=== PATIENT | male | born 1960 | race Caucasian/White ===

== ENCOUNTER 2016-11-24 09:12 | Emergency (ER) | payer MEDICAID ==
[2016-11-24 09:19] VITALS: BP 130/78
--- NOTE | 2016-11-24 09:38 | UC ---
Timbo Yo Claudia, scribed for Neo Chandler MD on 11/24/16 at 0934 . UC General HPI - HPI Summary HPI Summary: 56 year old male presents to the [facility] with Multi-Sx. Pt states sore throat, congestion, GONZALES, nasal discharge, fever, chills. Pt states gradual onset of Sx Thursday worsening Thursday and Thursday.He notes constant Sx since onset. Pt denies being exposed to friends/family with sore throat. Pt denies any alleviating or aggravating factors. He denies any associated Sx of abd pain, SOB , CP. Pt reports taking NyQuil and DayQuil with limited relief. - History of Current Complaint Chief Complaint: UCRespiratory Stated Complaint: THROAT PAIN Time Seen by Provider: 11/24/16 09:27 Hx Obtained From: Patient Onset/Duration: Gradual Onset, Lasting Days Timing: Constant Associated Signs & Symptoms: Positive: Fever, Headache. Negative: Abdominal Pain, Chest Pain, SOB - Allergy/Home Medications Allergies/Adverse Reactions: Allergies Allergy/AdvReac Type Severity Reaction Status Date / Time No Known Allergies Allergy Verified 11/22/12 16:31 Home Medications: Home Medications Naproxen Sodium [Naproxen Sodium 220 mg] 220 mg PO 11/24/16 [History] [id number] [Nyquil Severe Cold/Flu 5-6.25-10-325 mg/15Ml] 1 liq PO 11/24/16 [History] PMH/Surg Hx/FS Hx/Imm Hx Previously Healthy: Yes - Surgical History Surgical History: None - Family History Known Family History: Positive: Hypertension, Diabetes - Social History Occupation: Employed Full-time Alcohol Use: Occasionally Substance Use Type: None Smoking Status (MU): Former Smoker - Immunization History Most Recent Tetanus Shot: <5 YEARS Review of Systems Constitutional: Fever, Chills Skin: Negative Eyes: Negative ENT: Sore Throat, Nasal Discharge, Sinus Congestion Respiratory: Negative - NO SOB Cardiovascular: Negative - NO CP Gastrointestinal: Negative - NO ABD PAIN Genitourinary: Negative Motor: Negative Neurovascular: Negative Musculoskeletal: Negative Neurological: Headache Psychological: Negative All Other Systems Reviewed And Are Negative: Yes Physical Exam Triage Information Reviewed: Yes Appearance: Well-Appearing, No Pain Distress, Well-Nourished Vital Signs: Initial Vital Signs Temp 97.0 F 11/24/16 09:15 Pulse 95 11/24/16 09:15 Resp 18 11/24/16 09:15 BP 130/78 11/24/16 09:15 Pulse Ox 98 11/24/16 09:15 Vital Signs Reviewed: Yes Eyes: Positive: Conjunctiva Clear ENT: Positive: Normal ENT inspection, Hearing grossly normal, Pharyngeal erythema, Tonsillar exudate. Negative: Nasal congestion, Nasal drainage Neck: Positive: Supple, Nontender, No Lymphadenopathy Respiratory: Positive: Chest non-tender, Lungs clear, Normal breath sounds, No respiratory distress Cardiovascular: Positive: RRR, No Murmur, Pulses Normal Abdominal Exam: Normal Skin Exam: Normal Course/Dx - Differential Dx - Multi-Symptom Provider Diagnoses: PHARYNGITIS Discharge - Discharge Plan Condition: Stable Disposition: HOME Prescriptions: Amoxicillin (*) [Amoxicillin 875 MG (*)] 875 mg PO BID #20 tab Patient Education Materials: Pharyngitis (ED) Referrals: Cam Spencer MD [Primary Care Provider] - If Needed The documentation as recorded by the Timbo donaldson Claudia accurately reflects the service I personally performed and the decisions made by Geraldine jernigan Hossein, MD.
== END 2016-11-24 09:38 | disposition home or self-care (01) ==
LOC: UCEAST 09:12
DX: J02.9 Acute pharyngitis, unspecified (principal); Z87.891 Personal history of nicotine dependence
CPT/HCPCS: 99202; G0463

== ENCOUNTER 2016-12-30 12:12 | Emergency (ER) | payer OTHER ==
[2016-12-30 12:18] VITALS: BP 140/74
--- NOTE | 2016-12-30 12:39 | UC ---
Throat Pain/Nasal Perry HPI - HPI Summary HPI Summary: 56 male presents to the urgent care c/o sore throat since 12/26/2016. Pt reports he has a burning sensation down his throat w/ a mild cough. Pt has not taking anything to alleviate symptoms. Pt denies fever, SOB, chest pain, GONZALES, N/V /D. Pt has not other complains. - History of Current Complaint Chief Complaint: UCGeneralIllness Stated Complaint: SORE THROAT Time Seen by Provider: 12/30/16 12:24 Hx Obtained From: Patient Onset/Duration: Gradual Onset, Lasting Days, Still Present Severity: Mild Pain Intensity: 4 Pain Scale Used: 0-10 Numeric Cough: Nonproductive Associated Signs & Symptoms: Positive: Dysphagia. Negative: Fever, Vomiting, Rash - Epiglottits Risk Factors Epiglottis Risk Factors: Negative - Allergies/Home Medications Allergies/Adverse Reactions: Allergies Allergy/AdvReac Type Severity Reaction Status Date / Time No Known Allergies Allergy Verified 12/30/16 12:18 Home Medications: Home Medications Acetaminophen [Tylenol] 2 tab PO Q4HR PRN 12/30/16 [History Confirmed 12/30/16] [id number] W/ APAP [Tylenol Cold & Flu Severe 3-72-283-325 mg] 2 tab PO BEDTIME PRN 12/30/16 [History Confirmed 12/30/16] PMH/Surg Hx/FS Hx/Imm Hx Previously Healthy: Yes - Surgical History Surgical History: None - Family History Known Family History: Positive: Hypertension, Diabetes - Social History Occupation: Employed Full-time Lives: With Family Alcohol Use: Weekly Substance Use Type: None Smoking Status (MU): Former Smoker Household Exposure Type: Cigarettes - Immunization History Most Recent Tetanus Shot: <5 YEARS Review of Systems Constitutional: Negative Skin: Negative Eyes: Negative ENT: Sore Throat Respiratory: Cough - non productive Cardiovascular: Negative Gastrointestinal: Negative Genitourinary: Negative Motor: Negative Neurovascular: Negative Musculoskeletal: Negative Neurological: Negative Psychological: Negative All Other Systems Reviewed And Are Negative: Yes Physical Exam Triage Information Reviewed: Yes Appearance: Well-Appearing, No Pain Distress, Well-Nourished Vital Signs: Initial Vital Signs Temp 97.1 F 12/30/16 12:13 Pulse 70 12/30/16 12:13 Resp 16 12/30/16 12:13 BP 140/74 12/30/16 12:13 Pulse Ox 96 12/30/16 12:13 Vital Signs Reviewed: Yes Eye Exam: Normal Eyes: Positive: Conjunctiva Clear - PERRLA, EOMI, fundi grossly normal ENT Exam: Normal ENT: Positive: Normal ENT inspection, Hearing grossly normal, Pharyngeal erythema - no exudate, TMs normal, Tonsillar swelling Dental Exam: Normal Neck exam: Normal Neck: Positive: Supple, Nontender, No Lymphadenopathy Respiratory Exam: Normal Respiratory: Positive: Chest non-tender, Lungs clear, Normal breath sounds Cardiovascular Exam: Normal Cardiovascular: Positive: RRR, No Murmur, Pulses Normal Abdominal Exam: Normal Abdomen Description: Positive: Nontender, No Organomegaly, Soft. Negative: CVA Tenderness (R) Bowel Sounds: Positive: Present Musculoskeletal Exam: Normal Neurological Exam: Normal Psychological Exam: Normal Skin Exam: Normal Throat Pain/Nasal Course/Dx - Course Course Of Treatment: 56 male presents to the urgent care c/o sore throat since . Pt reports he has a burning sensation down his throat w/ a persistent cough. Pt has not taking anything to alleviate symptoms. Pt denies fever, SOB, chest pain, GONZALES, N/V/D. HX obtained. PE abnormal findings:ENT: Positive: Normal ENT inspection, Hearing grossly normal, Pharyngeal erythema - no exudate, TMs normal, Tonsillar swelling. Rapid strep Ordered: results: negative. Viral pharyngitis. PT Advised to take Tylenol q4-6hrs prn to alleviate symptoms of pain and swelling. Increase fluid intake. Rx Omeprazole PO to alleviate symptoms of burning esophagus. Advised on dietary modifications. BP: elevated today w/o Hx of HTN. Advised on low salt in diet and f/u with his PCP for further management. Pt undersood and agreed. - Differential Dx/Diagnosis Differential Diagnosis/HQI/PQRI: Laryngitis, Mononucleosis, Otitis Media, Peritonsillar Abscess, Pharyngitis, Tonsillitis Provider Diagnoses: 1- Viral pharyngitis. 2-GERD. 3- Elevated blood pressure w /o HX of HTN Discharge - Discharge Plan Condition: Stable Disposition: HOME Prescriptions: Omeprazole CAP* [Prilosec CAP* 20 MG] 20 mg PO DAILY #30 cap. Patient Education Materials: Pharyngitis (ED), Gastroesophageal Reflux Disease (ED), Low Sodium Diet (ED) Referrals: Kaiser Fermin MD [Primary Care Provider] - 1 Week Additional Instructions: 1-Please take medications as instructed to alleviate symptoms. Please do dietary modifications as directed. 2-For your Viral pharyngitis take Tylenol OTC q4-6hrs for the following 2-3 days to alleviate symptoms of pain and swelling. 3-Your BP is elevated today please decrease salt in your diet and monitor your BP. F/u with your PCP for further evaluation and treatment.
== END 2016-12-30 13:09 | disposition home or self-care (01) ==
LOC: UCEAST 12:12
DX: J02.8 Acute pharyngitis due to other specified organisms (principal); K21.9 Gastro-esophageal reflux disease without esophagitis; R03.0 Elevated blood-pressure reading, without diagnosis of hypertension; Z87.891 Personal history of nicotine dependence
CPT/HCPCS: 87651; 99212; G0463

== ENCOUNTER 2017-01-20 14:40 | Emergency (ER) | payer OTHER ==
--- NOTE | 2017-01-20 16:21 | RAD ---
HISTORY: Cough COMPARISONS: None VIEWS: 4: Frontal dual-energy and lateral views of the chest. FINDINGS: CARDIOMEDIASTINAL SILHOUETTE: The cardiomediastinal silhouette is normal. DB: The db are normal. PLEURA: The costophrenic angles are sharp. No pleural abnormalities are noted. LUNG PARENCHYMA: The lungs are clear. ABDOMEN: The upper abdomen is clear. There is no subphrenic gas. BONES AND SOFT TISSUES: No bone or soft tissue abnormalities are noted. OTHER: None. IMPRESSION: NO ACTIVE CARDIOPULMONARY DISEASE.
--- NOTE | 2017-01-20 16:22 | UC ---
Respiratory Complaint HPI - HPI Summary HPI Summary: Patient presents to the with CC of cough x 3 weeks which has been worsening. He was seen here 2 weeks ago and dx with GERD. He notes to coughing up brown sputum, cough is 10/10 and worse at night and feeling sweats and chills s/p coughing fit. Temps are around 99.0 and he denies any SOB or difficulty breathing otherwise. Patient is a non-smoker. Denies N/V/C/D. Denies previous PNA history, but endorses previous bronchitis. Otherwise healthy and takes no medications. Denies allergies. - History of Current Complaint Chief Complaint: UCRespiratory Stated Complaint: CONGESTION COUGH Time Seen by Provider: 01/20/17 16:02 Hx Obtained From: Patient Onset/Duration: Gradual Onset Timing: Constant Severity Initially: Moderate Severity Currently: Moderate Pain Intensity: 5 Pain Scale Used: 0-10 Numeric Character: Cough: Productive Aggravating Factors: Deep Breaths Alleviating Factors: Nothing Associated Signs And Symptoms: Positive: Dyspnea, URI - Risk Factors Pulmonary Embolism Risk Factors: Negative Cardiac Risk Factors: Negative Pseudomonas Risk Factors: Negative Tuberculosis Risk Factors: Negative - Allergies/Home Medications Allergies/Adverse Reactions: Allergies Allergy/AdvReac Type Severity Reaction Status Date / Time No Known Allergies Allergy Verified 01/20/17 15:21 Home Medications: Home Medications Loratadine [Claritin 10 MG CAP] 10 mg PO DAILY 01/20/17 [History Confirmed 01/20] PMH/Surg Hx/FS Hx/Imm Hx Previously Healthy: Yes Respiratory History: Bronchitis - Surgical History Surgical History: None - Family History Known Family History: Positive: Hypertension, Diabetes - Social History Occupation: Employed Full-time Lives: With Family Alcohol Use: Occasionally Substance Use Type: None Smoking Status (MU): Former Smoker Household Exposure Type: Cigarettes - Immunization History Most Recent Tetanus Shot: <5 YEARS Review of Systems Constitutional: Negative Skin: Negative ENT: Negative Respiratory: Shortness Of Breath, Cough Cardiovascular: Negative Motor: Negative Neurovascular: Negative Musculoskeletal: Negative Neurological: Negative All Other Systems Reviewed And Are Negative: Yes Physical Exam Triage Information Reviewed: Yes Appearance: Well-Appearing, No Pain Distress, Well-Nourished Vital Signs: Initial Vital Signs Temp 97.5 F 01/20/17 15:16 Pulse 84 01/20/17 15:16 Resp 16 01/20/17 15:16 BP 146/92 08/22/17 15:16 Pulse Ox 97 01/20/17 15:16 Vital Signs Reviewed: Yes Eye Exam: Normal Eyes: Positive: Conjunctiva Clear Neck exam: Normal Neck: Positive: Supple, Nontender, No Lymphadenopathy Respiratory: Positive: Rhonchi Cardiovascular Exam: Normal Cardiovascular: Positive: RRR Musculoskeletal Exam: Normal Musculoskeletal: Positive: Strength Intact Neurological Exam: Normal Neurological: Positive: Alert Psychological: Positive: Normal Response To Family, Age Appropriate Behavior Skin Exam: Normal UC Diagnostic Evaluation - Laboratory O2 Sat by Pulse Oximetry: 97 Respiratory Course/Dx - Course Course Of Treatment: Patient is sent to xray. Xray showed no findings. However , on physical exam lungs were rhonchorous, worse in the LLL. Patient is coughing and is having difficulty catching his breath in the UC. Patient is prescribed cough medication for day and night time and is advised to take the robitussin with codeine in the day time and discontonue the tesslon only if his cough is not improved with the tesslon. Albuterol inhaler given and z-gerald for possible bronchitis d/t brown sputum. Patient is a non-smoker, so will cover for S. PNA and not H. Flu. He is advised to return for any worsening symptoms. Medications were explained and precautions given. - Differential Dx/Diagnosis Differential Diagnosis/HQI/PQRI: Asthma, Bronchitis, Lower Resp Infection Provider Diagnoses: Bronchitis Discharge - Discharge Plan Condition: Stable Disposition: HOME Prescriptions: Albuterol HFA INHALER* [Ventolin HFA Inhaler*] 1 puff INH Q6H PRN #1 mdi PRN Reason: Shortness Of Breath Azithromyxin GERALD (NF) [Z-Gerald (Zithromax) 250 mg tabs #6] 2 tab PO .TODAY, THEN 1 DAILY #6 tab Benzonatate CAP* [Tessalon CAP*] 100 mg PO TID #21 cap guaiFENesin/CODIEN 100MG-10MG* [Robitussin AC 100Mg-10Mg*] 10 ml PO BEDTIME # 120 udc MDD 30 Patient Education Materials: Codeine (By mouth), Acute Cough (ED) Referrals: Kaiser Fermin MD [Primary Care Provider] - Additional Instructions: Take the tesslon perles during the day You may take robitussin with codeine 10mg (2 teaspoons) at bedtime This medication you may also take during the daytime, if cough is not resolved well with tesslon, but do not take both together. Albuterol inhaler for any shortness of breath Azithromycin as prescribed.
[2017-01-20 17:00] VITALS: BP 124/64
== END 2017-01-20 16:55 | disposition home or self-care (01) ==
LOC: UCEAST 14:40
DX: J40 Bronchitis, not specified as acute or chronic (principal); Z87.891 Personal history of nicotine dependence
CPT/HCPCS: 71020; 99212; G0463

== ENCOUNTER 2017-01-28 17:12 | Emergency (ER) | payer OTHER ==
[2017-01-28 17:24] VITALS: BP 145/97
--- NOTE | 2017-01-28 17:42 | ED ---
Respiratory - HPI Summary HPI Summary: 56M presents with cough for 3 weeks. He states his cough has gotten better and then worst. He was told her had GERD first time seen here and placed on omeprazole which didn't seem to help. He then was seen again and placed on zpack, inhaler, tessalon, and cough medication. He was feeling better after completing all this and then his symptoms returned this weekend. He was a smoker and quit 5 years ago and was smoking a pack a week. He admits to fever. He admits to post nasal drip and sinus congestion. He denies any ear pain, chest pain. He is SOB when he coughs. He denies any history of respiratory issues. He is leaving for camping this weekend. - History of Current Complaint Chief Complaint: UCRespiratory Stated Complaint: URI Time Seen by Provider: 01/28/17 17:27 - Allergy/Home Medications Allergies/Adverse Reactions: Allergies Allergy/AdvReac Type Severity Reaction Status Date / Time No Known Allergies Allergy Verified 01/28/17 17:20 PMH/Surg Hx/FS Hx/Imm Hx Endocrine/Hematology History: Denies: Hx Diabetes, Hx Thyroid Disease Cardiovascular History: Denies: Hx Hypertension Respiratory History: Denies: Hx Asthma, Hx Chronic Obstructive Pulmonary Disease (COPD) GI History: Denies: Hx Ulcer Psychiatric History: Denies: Hx Eating Disorder Infectious Disease History: No Infectious Disease History: Denies: Hx Hepatitis, Hx Human Immunodeficiency Virus (HIV), Traveled Outside the [place] in Last 30 Days - Family History Known Family History: Positive: Hypertension, Diabetes Negative: Respiratory Disease - Social History Alcohol Use: Occasionally Substance Use Type: Reports: None Smoking Status (MU): Former Smoker Review of Systems Positive: Fever Positive: Sore Throat, Nasal Discharge Negative: Chest Pain Positive: Shortness Of Breath, Cough Negative: Abdominal Pain All Other Systems Reviewed And Are Negative: Yes Physical Exam Triage Information Reviewed: Yes Vital Signs On Initial Exam: Initial Vitals Temp Pulse Resp BP Pulse Ox 98.1 F 84 18 145/97 98 01/28/17 17:14 01/28/17 17:14 01/28/17 17:14 01/28/17 17:14 01/28/17 17:14 Vital Signs Reviewed: Yes Appearance: Positive: Well-Appearing Skin: Positive: Warm, Dry Head/Face: Positive: Normal Head/Face Inspection Eyes: Positive: Normal, EOMI, NEVAEH, Conjunctiva Clear ENT: Positive: Pharyngeal erythema - post nasal drip present, Nasal congestion, TMs normal Neck: Positive: Supple, Nontender, No Lymphadenopathy Respiratory/Lung Sounds: Positive: Breath Sounds Present, Rhonchi - upper resp sounds present throughtout lungs Cardiovascular: Positive: Normal, RRR Abdomen Description: Positive: Nontender, Soft Bowel Sounds: Positive: Present Musculoskeletal: Positive: Normal Neurological: Positive: Normal Psychiatric: Positive: Normal Diagnostics - Vital Signs Vital Signs Temp Pulse Resp BP Pulse Ox 01/28/17 17:14 98.1 F 84 18 145/97 98 - Laboratory Lab Statement: Any lab studies that have been ordered have been reviewed, and results considered in the medical decision making process. - Radiology chest Xray Interpretation: No Acute Changes Radiology Interpretation Completed By: Radiologist Disposition - Course Course Of Treatment: 56M presents with cough for 3 weeks. He states his cough has gotten better and then worst. He was told her had GERD first time seen here and placed on omeprazole which didn't seem to help. He then was seen again and placed on zpack, inhaler, tessalon, and cough medication. He was feeling better after completing all this and then his symptoms returned this weekend. He was a smoker and quit 5 years ago and was smoking a pack a week. He admits to fever. He admits to post nasal drip and sinus congestion. He denies any ear pain, chest pain. He is SOB when he coughs. He denies any history of respiratory issues. on exam has post nasal drip present, congestion heard in lungs. xray normal. will treat with steriod, flonase, and levaquin. told to follow up with PCP about blood pressure and potential needs respiratory testing for COPD? cough could be just persistent bronchitis or due to post nasal drip. patient understands and agrees with plan. - Differential Dx - Cardiopulmonary Differential Diagnoses - Cardiopulmonary: Acute Dyspnea, Bronchitis, Lower Resp Infection - Diagnoses Provider Diagnoses: Bronchitis Discharge - Discharge Plan Condition: Good Disposition: HOME Prescriptions: Benzonatate CAP* [Tessalon 100 MG CAP*] 100 mg PO TID PRN #21 cap PRN Reason: Cough Fluticasone NASAL SPRAY 50MCG* [Flonase NASAL SPRAY 50MCG*] 2 spray BOTH NARES DAILY #1 btl Levofloxacin TAB* [Levaquin 500 Tab*] 500 mg PO DAILY #7 tab guaiFENesin/CODIEN 100MG-10MG* [Robitussin AC 100Mg-10Mg*] 5 ml PO Q6H PRN #100 ml MDD 20ml PRN Reason: Cough predniSONE TAB* [Deltasone TAB*] 40 mg PO DAILY #10 tab Patient Education Materials: Acute Bronchitis (ED) Referrals: Kaiser Fermin MD [Primary Care Provider] - Additional Instructions: Use inhaler up to two puffs every 4-6 hours for cough and wheezing Take steroid once a day for 5 days Take antibiotic once daily starting tomorrow for 7 days Take three tablets a day of tessalon Use robitussin 5ml every 6 hours at night for cough Take Tylenol or ibuprofen for pain every 6 hours Follow up with primary within 5 days about blood pressure which is high at this time so decrease salt intake in meantime Return to ED if develop severe shortness of breath or any new or worsening symptoms
--- NOTE | 2017-01-28 17:59 | RAD ---
Indication: Cough, fever. 2 views of the chest including dual energy PA views demonstrate no mediastinal shift. Heart is of normal size and configuration. Lung espinoza are clear. IMPRESSION: No active cardiopulmonary disease is noted.
== END 2017-01-28 18:08 | disposition home or self-care (01) ==
LOC: UCEAST 17:12
DX: J40 Bronchitis, not specified as acute or chronic (principal); Z87.891 Personal history of nicotine dependence
CPT/HCPCS: 71020; 99212; G0463

== ENCOUNTER → 2018-06-30 05:34 | Day surgery (SDC) | payer OTHER ==
--- NOTE | 2018-06-22 13:37 | HP ---
PREOPERATIVE HISTORY AND PHYSICAL: DATE OF ADMISSION/SURGERY: 06/30/18 DATE OF OFFICE VISIT: 06/22/18 ATTENDING SURGEON: Dr. Aramis Price.* (DICTATED BY PRIYANK MUÑOZ) PROCEDURE: Right shoulder arthroscopic rotator cuff repair, decompression, debridement, subpectoral biceps tenodesis. CHIEF COMPLAINT: Right shoulder. HISTORY OF PRESENT ILLNESS: Jun is a 57-year-old male, who presents to the clinic for right shoulder pain after an injury on 03/30/18 that caused a rotator cuff tear and biceps tendinitis. He has failed conservative measures and therefore agreed to undergo a right shoulder arthroscopic rotator cuff repair, decompression, debridement, subpectoral biceps tenodesis with Dr. Price on 06/30/18. PAST MEDICAL HISTORY: High cholesterol. PAST SURGICAL HISTORY: No prior surgeries. MEDICATIONS: 1. Diclofenac sodium 75 mg 1 by mouth twice a day. 2. Pravastatin 20 mg 1 by mouth at bedtime. 3. Truvada 200/300 mg 1 tablet every day for 3 months. 4. Sildenafil citrate 20 mg 1 by mouth 30 minutes before sexual activity. 5. Advil 200 mg as needed. 6. Vitamin D 1000 units 2 by mouth every day. 7. Vitamin C 500 mg 1 by mouth every day. 8. Ibuprofen 400 to 600 mg every 6 hours as needed for pain. ALLERGIES: No known drug allergies. FAMILY HISTORY: Positive for diabetes in mother and sister, heart disease in mother, history of DVT in mother, grandfather with stroke, cancer in grandfather , and rheumatoid arthritis in his mother. SOCIAL HISTORY: He lives with his family. 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 He quit tobacco 6 years ago. He drinks 2 alcoholic beverages a week. He exercises regularly. He is right hand dominant. REVIEW OF SYSTEMS: A 14-point review of systems was reviewed with the patient. Positive for current complaint, otherwise negative. Denies fever, chills, chest pain, shortness of breath, history of bleeding disorder, history of DVT or PE, history of hepatitis C or HIV. PHYSICAL EXAMINATION GENERAL: A 57-year-old, well-developed, well-nourished male, in no acute distress. VITAL SIGNS: Height 67, weight 175, pulse 74, blood pressure 138/94, temperature 96.2, BMI 27.4. HEENT: Normocephalic, atraumatic. PERRLA. Throat clear. NECK: Supple. PULMONARY: Lungs are clear to auscultation bilaterally. No wheezing, rhonchi, or rales. CARDIO: Regular rate and rhythm. S1, S2. No murmurs, gallops, or rubs. No edema. ABDOMEN: Positive bowel sounds. Soft, nontender. NEURO: Alert and oriented x3. Cranial nerves grossly intact. MUSCULOSKELETAL: Right upper extremity: Skin is intact. No warmth or erythema. Forward flexion to 160 passively, actively to 130, abduction 110, external rotation to 60, internal rotation to T8. +4/5 strength to rotator cuff testing with pain. +2 radial pulse. Sensation intact to light touch distally. Positive impingement, Speed, Robertson-Shoaib, [place]. DIAGNOSTIC STUDIES: MRI revealed full-thickness tear of the rotator cuff and AC joint arthritis as well as biceps tendinopathy and a possible SLAP tear. IMPRESSION: Right shoulder rotator cuff tear and biceps tendinitis. PLAN: The patient is scheduled to undergo a right shoulder arthroscopic rotator cuff repair, decompression, debridement, and subpectoral biceps tenodesis with Dr. Price on 06/30/18. He will follow up 10 to 14 days postop for followup and suture removal. Percocet will be used for postop pain management and Keflex for antibiotic prophylaxis due to the biceps tenodesis. PRIYANK MUÑOZ [id number]/[facility] #: [id number] [facility] MEDICAL CENTERKelsey
[~2018-06-30 05:34] MED LIST: Acetaminophen TAB* 325 MG PO PRN; Buffered Lidocaine 1% SYRIN* 1 ML/SYRINGE INTRADERM ONE; Dexamethasone IV* 4 MG/ML 1 ML (4 MG) IV SLOW PU ONE; Dexamethasone IV* 4 MG/ML 1 ML (4 MG) ONE; DiMENhydriNATE IV* 50 MG/ML VIAL IV PUSH PRN; EPHEDrine (Pressors)* 50 MG/ML VIAL ONE; Famotidine IV* 10 MG/ML 2 ML (20 mg) IV ONE; Famotidine IV* 10 MG/ML 2 ML (20 mg) ONE; Ketorolac INJ* 30 MG/ML 1 ML VIAL IV PRN; Lactated Ringers 1000 ML Bag* 1,000 ML IV SCH; Lidocaine 1% INJ* 10 MG/ML 30 ML SDV ONE; Lidocaine 1%* 5 ML VIAL ONE; Midazolam* 1 MG/ML 5 ML VIAL (5 MG) ONE; Naloxone* 0.4 MG/ML 1 ML VIAL IV PRN; Ondansetron INJ* 2 MG/ML VIAL ONE; PROCHLORPERAZINE INJ 5 MG/ML 2 ML VIAL IV PRN; Phenylephrine IV* 40 MCG/ML 10 ML SYRINGE ONE; Propofol* 10 MG/ML 20 ML BTL ONE; ROPIVACAINE 5 MG/ML 30 ML BTL (0.5%) ONE; Rocuronium* 10 MG/ML VIAL ONE; Ropivacaine* 2 MG/ML 20 ML VIAL (0.2%) ONE; Succinylcholine* 20 MG/ML 10 ML VIAL ONE; ceFAZolin 2 GM PREMIX in ORs 2 GM/50 ML BAG IVPB ONE; fentaNYL* 50 MCG/ML 2 ML VIAL (100 MCG VIAL) IV PRN; fentaNYL* 50 MCG/ML 2 ML VIAL (100 MCG VIAL) ONE; oxyCODONE/Acetamin 5/325 MG* TAB PO PRN
[2018-06-30 11:59] VITALS: BP 145/77
--- NOTE | 2018-06-30 14:01 | OP ---
OPERATIVE REPORT: DATE OF OPERATION: 06/30/18 DATE OF : 56 SURGEON: Aramis Price MD ADDICTIONS RECOVERY SPECIALIST: PRIYANK Mauro An railways assistant was needed for the entirety of the case to help with positioning, retraction, and was ut ilized throughout all portions of the case. ANESTHESIOLOGIST: Dr. Hayes. ANESTHESIA: General interscalene block. PRE-OP DIAGNOSIS: Right shoulder full-thickness tear of the rotator cuff with SLAP tear. POST-OP DIAGNOSIS: Right shoulder full-thickness tear of the rotator cuff with SLAP tear. OPERATIVE PROCEDURE: Right shoulder arthroscopy with: 1. Extensive glenohumeral debridement including debridement of the anteroposterior superior labrum. 2. Arthroscopic biceps tenodesis. 3. Subacromial decompression with acromioplasty. 4. Rotator cuff repair of the supraspinatus tendon in a double row fashion. COMPLICATIONS: None. ESTIMATED BLOOD LOSS: Minimal. IMPLANTS USED: Three Healicoil and two Multifix. INDICATIONS: Jun Talbot is a 57-year-old gentleman, who presented with a persistent pain in th e shoulder diagnosed with rotator cuff tear. He has failed conservative management. He has elected to proceed with surgical treatment. Risks and benefits of surgery were discussed at length and inclu ded but not limited to bleeding; infection; damage to nerves, vessels, surrounding structures; wound nonhealing; persistent pain; need for further surgery; scaring; stiffness; incomplete relief of sympt oms; and risks of anesthesia. DESCRIPTION OF PROCEDURE: The patient was greeted in the preoperative area by the attending surgeon. Correct extremity was marked. Consent was confirmed. The patient underwent interscalene nerve blo ck by the anesthesiologist after which he was brought back to the operating suite. He was placed in the supine position on the operating room table. He then underwent general anesthesia and endotrache al intubation. After which, he was placed in the lateral decubitus position. All bony prominences w ere padded. He was secured with a peg board. The right arm was draped unsterile with 10 pounds of t raction. The right shoulder was then prepped and draped in the usual sterile fashion beginning with chlorhexidine soap, scrub, and alcohol wipe and a final prep with ChloraPrep. After appropriate surgical pause indicating site, side, procedure, administration of antibiotics, the standard posterolateral portal was made sharply with an 11 blade. Scope was introduced into the bernadette nt. The joint was examined. Glenohumeral joint had grade 0 to 1 changes. The anteroposterior super ior labrum had unstable fraying. Anterior wall was made in an outside-in fashion. Shaver was used t o debride this back. Inferior recess was intact with synovitis. Subscap was intact. There was full- thickness tear of the supraspinatus with unstable flaps and then anteriorly base tear. There was sup erior labrum tear as well. Once the debridement was complete, attention was directed to the rotator cuff. Plan was to try and do an arthroscopic biceps tenodesis. The scope was positioned in the subacromial space. The lateral portal was made in an outside-in fas ion. Shaver was used to debride back the bursa. The undersurface of the acromion was skeletonized u sing electrocautery device. The anterolateral spur was present and this was debrided back using a 4- 0 oval sriram. After this was completed, attention was directed to the rotator cuff. The cuff was found to have an acute traumatic tear with remnants still attached to the tuberosity. T his was debrided back using the shaver. The electrocautery device was used to skeletonize the greate r tuberosity. A 4-0 oval sriram and rasp were used to gently decorticate the tissues. He had good sarah lity of bone. Biceps was found to be in its groove. Decision was made to do a biceps tenodesis as i t was exposed quite well because of the nature of the rotator cuff tear. Through a separate stab inc ision, a 4.75 Healicoil was then placed with excellent purchase. The sutures were then passed through the tendon in a lock loop type of fashion and then tied down. The biceps was then tenotomized proxi mal to that and the stump was debrided back. Attention was then directed to the rotator cuff. The cuff tissue was carefully mobilized. This was the beginning of a medium-sized L-shaped tear. Th e shaver was used to debride back the cuff and the cuff was carefully mobilized. Once these were was appropriately found to be restored through footprint, the two separate stab incisions two 4.75 Heali coils were placed in the medial row. One of the sutures from the biceps Healicoil was also used to t ry to pass to the most anterior aspect of the tendon to help restore the cable and then the remaining sutures were passed in a horizontal mattress configuration. Arthroscopic knot tieing was then done t o tie the knots down. This reapproximated the cuff and then the sutures were split. One strap from each knot was then passed through an anterolateral Multifix anchor for double row fixation and the re maining sutures were passed posterolaterally for double row fixation. Final images were obtained. T he wounds were copiously irrigated with sterile saline. Sterile dressings were applied as well as a Cryo/Cuff and UltraSling. He was awoken from anesthesia and transferred to the PACU in stable condit ion. POSTOPERATIVE PLAN: He will be nonweightbearing. He will be in the sling for 6 weeks. Discharged w ith pain medication. DVT prophylaxis was considered but deferred due to no previous personal or fami ly history. I will see the patient back in 10 to 14 days. [id number]/[facility] #: [id number]
== END | disposition home or self-care (01) ==
LOC: OR 05:34
PROVIDERS: ATTEND Orthopaedic Surgery
DX: S46.011A Strain of muscle(s) and tendon(s) of the rotator cuff of right shoulder, initial encounter (principal); S43.491A Other sprain of right shoulder joint, initial encounter; X58.XXXA Exposure to other specified factors, initial encounter; Y92.9 Unspecified place or not applicable; G89.18 Other acute postprocedural pain; E78.5 Hyperlipidemia, unspecified; Z87.891 Personal history of nicotine dependence
CPT/HCPCS: C1713; J0330; J0690; J1100; J2250; J2405; J2704; J2795; J3010

== ENCOUNTER 2024-01-08 19:05 | Inpatient (IN) ==
[2024-01-08 19:41] LABS: ABS Basophils 0.1 10^3/uL (0.0-0.1); ABS Eosinophils 0.2 10^3/uL (0.0-0.5); ABS Lymphocytes 2.3 10^3/uL (1.0-4.8); ABS Monocytes 0.9 10^3/uL (0.0-1.1); ABS Neutrophils 5.1 10^3/uL (1.5-7.6); ABS Nucleated RBC 0.01 10^3/ul; Eosinophil % 1.8 %; Hematocrit 41.7 % (38-53); Hemoglobin 14.2 g/dL (13.2-16.3); Lymphocyte % 27.2 %; Mean Corpuscular Hemoglobin 30.5 pg (27-33); Mean Corpuscular Volume 89.5 fL (80-97); Mean Platelet Volume 7.1 fL (7.5-11.2); Nucleated Red Blood Cells % 0.1 %/100WBC (0.0-0.8); Platelet Count 397 10^3/uL (150-450); Red Blood Count 4.65 10^6/uL (4.06-5.63); Red Cell Distribution Width 13.5 % (12-17); White Blood Count 8.6 10^3/uL (3.6-10.2)
[2024-01-08 20:01] LABS: INR 1.08 (0.83-1.13)
[2024-01-08 20:23] LABS: Albumin 4.4 g/dL (3.2-5.2); Albumin/Globulin Ratio 1.5 (1-3); Calcium 9.6 mg/dL (8.6-10.3); Creatinine, Serum 1.13 mg/dL (0.67-1.17); Globulin 2.9 g/dL (2-4); Potassium 4.4 mmol/L (3.5-5.0); Total Bilirubin 0.5 mg/dL (0.2-1.0); Total Protein 7.3 g/dL (6.4-8.9); eGFR CKD-EPI 72.1 (>60)
[2024-01-08 21:07] LABS: High Sensitivity Troponin 1 Hr 3 pg/mL (<20)
[2024-01-09 06:46] LABS: ABS Basophils 0.1 10^3/uL (0.0-0.1); ABS Eosinophils 0.2 10^3/uL (0.0-0.5); ABS Lymphocytes 1.8 10^3/uL (1.0-4.8); ABS Monocytes 0.8 10^3/uL (0.0-1.1); ABS Neutrophils 4.4 10^3/uL (1.5-7.6); Eosinophil % 2.8 %; Hemoglobin 13.3 g/dL (13.2-16.3); Lymphocyte % 25.1 %; Mean Corpuscular Hemoglobin 30.6 pg (27-33); Mean Corpuscular Hgb Conc 34.2 g/dL (31-36); Mean Corpuscular Volume 89.6 fL (80-97); Mean Platelet Volume 6.9 fL (7.5-11.2); Platelet Count 355 10^3/uL (150-450); Red Blood Count 4.36 10^6/uL (4.06-5.63); Red Cell Distribution Width 13.6 % (12-17); White Blood Count 7.2 10^3/uL (3.6-10.2)
[2024-01-09 07:11] LABS: Calcium 9.3 mg/dL (8.6-10.3); Creatinine, Serum 0.95 mg/dL (0.67-1.17); Potassium 4.3 mmol/L (3.5-5.0); eGFR CKD-EPI 88.8 (>60)
[2024-01-09 11:03] LABS: C Reactive Protein 13.07 mg/L (<8.01); HDL Cholesterol 35.7 mg/dL
[2024-01-09 11:19] LABS: TSH Ultra Thyroid Stim Horm 1.9 mcIU/mL (0.34-5.60)
[2024-01-10 06:07] LABS: Calcium 9.2 mg/dL (8.6-10.3); Creatinine, Serum 1.06 mg/dL (0.67-1.17); Magnesium 2.3 mg/dL (1.9-2.7); Potassium 4.6 mmol/L (3.5-5.0); eGFR CKD-EPI 77.9 (>60)
[2024-01-11] MEDS: NS 0.9% 1000 ml BAG 1,000 ML IV SCH (00:49)
[2024-01-11 06:56] LABS: Creatinine, Serum 1.08 mg/dL (0.67-1.17); Magnesium 2.1 mg/dL (1.9-2.7); Potassium 4.6 mmol/L (3.5-5.0); eGFR CKD-EPI 76.2 (>60)
[2024-01-11] MEDS ORDERED: ceFAZolin 2 GM PREMIX 0 GM/0 ML BAG ONE (07:57)
[2024-01-11] MEDS ORDERED: fentaNYL 100 mcg/2 ml 50 MCG/ML VIAL ONE ×2 (09:07→10:58)
[2024-01-11] MEDS ORDERED: Midazolam 5 mg/5 ml VIAL 1 mg/ml 5 ml VIAL (5 mg) ONE ×2 (09:07→10:41)
[2024-01-11] MEDS ORDERED: Lidocaine 1% VIAL 10 MG/ML 30 ML VIAL ONE (09:08)
[2024-01-11] MEDS: ceFAZolin 2 GM PREMIX 2 GM/50 ML BAG IV ONE (09:45)
[2024-01-11] MEDS: ceFAZolin SYR FLUSH 1 GM/10 ML for pocket flush (cardiology) FLUSH ONE (10:47)
[2024-01-11] MEDS: fentaNYL 100 mcg/2 ml 50 MCG/ML VIAL IV SLOW PU ONE (12:12)
[2024-01-11] MEDS: Midazolam 10 mg/10 ml VIAL 1 mg/ml 10 ml VIAL (10 mg) IV SLOW PU ONE (12:12)
[2024-01-11] MEDS: Morphine 2 MG/ML SYRINGE IV ONE (13:22)
[2024-01-11] MEDS: Morphine 2 MG/ML SYRINGE IV PRN (16:10)
[2024-01-11] MEDS: ceFAZolin VIAL 1 GM in NS 0.9% 50 ML 50 ML IVPB SCH ×2 (19:57→20:31)
[2024-01-11 22:57] LABS: Anaplasma phagocytophilum Negative (Negative); B. miyamotoi PCR, B Negative (Negative); Babesia divergens/MO-1 Negative (Negative); Babesia ducani Negative (Negative); Ehrlichia chaffeensis Negative (Negative); Ehrlichia ewingii/canis Negative (Negative); Ehrlichia muris eauclairensis Negative (Negative)
[2024-01-12 14:07] VITALS: BP 123/73
== END 2024-01-12 15:20 | disposition home or self-care (01) | DRG 244 ==
LOC: EDHOLD 19:05 → ED 19:05 → SUATTDRO 01-09 00:36 → MEDTELE 01-09 03:55 → SUATTDRO 01-09 17:42
PROVIDERS: ADMIT Internal Medicine; ATTEND Internal Medicine